=== PATIENT | female | born 1980 | race Caucasian/White ===

== ENCOUNTER 2016-07-18 11:11 | Emergency (ER) | payer OTHER ==
[~2016-07-18] VITALS: Ht 170.2 cm; Wt 150.8 kg
[2016-07-18 12:03] VITALS: BP 147/93
== END 2016-07-18 15:50 | disposition home or self-care (01) ==
LOC: ED 11:11
DX: R11.10 Vomiting, unspecified (principal); R19.7 Diarrhea, unspecified; R51 Headache
CPT/HCPCS: Q0162

== ENCOUNTER 2018-10-16 23:48 | Emergency (ER) | payer SELFPAY ==
[~2018-10-16] VITALS: Ht 170.2 cm; Wt 155.6 kg
[2018-10-16 23:56] VITALS: BP 142/100; Ht 170.2 cm; Wt 155.6 kg
== END 2018-10-17 00:14 | disposition home or self-care (01) ==
LOC: ED 23:48
DX: J18.9 Pneumonia, unspecified organism (principal); Z98.890 Other specified postprocedural states